=== PATIENT | female | born 1940 | race Caucasian/White ===

== ENCOUNTER 2022-06-22 18:15 | Emergency (ER) | payer MEDICARE, SELFPAY ==
--- NOTE | ~2022-06-22 | CT_ITS ---
EXAMINATION: NONCONTRAST HEAD CT NONCONTRAST CERVICAL SPINE CT INDICATION INFORMATION: Status post fall on blood thinners. Bilateral neck pain. COMPARISON: None TECHNIQUE: Separate noncontrast CT examinations of the head and cervical spine were performed. Coronal and sagittal images were created for each examination at the technologist workstation. This CT examination was performed using dose optimization techniques as appropriate, variously including the following: *Automated exposure control *Adjustment of mA and/or kV according to patient size (this includes techniques or standardized protocols for targeted exams where dose is matched to indication/reason for exam; i.e. extremities or head) *Use of iterative reconstruction technique DLP: 1128 mGy-cm FINDINGS: HEAD: No intra or extra-axial fluid collection, hemorrhage, or mass. No ventriculomegaly. No midline shift or herniation. Basal cisterns are patent. Camargo-white matter differentiation is maintained. No territorial encephalomalacia. Proportional prominence of the ventricles and sulcal spaces is consistent with mild volume loss. Patchy periventricular and deep white matter hypoattenuation is consistent with moderate small vessel ischemic changes. Prior lacunar infarcts in the right caudate head, left lentiform nucleus, and left thalamus. No calvarial fracture or soft tissue abnormality. The mastoid air cells and visualized portions of the paranasal sinuses are well aerated. Status post bilateral lens extractions. CERVICAL SPINE: Alignment: Straightening of the normal cervical lordosis. Minimal grade 1 anterolisthesis at C2-C3, C7-T1, T1-T2, T2-T3. Vertebra: No acute fracture. No prevertebral soft tissue swelling. Degenerative disc disease: Diffuse severe cervical spondylosis characterized by severe disc height loss, endplate sclerosis and proliferative change throughout the cervical spine. Multilevel facet arthrosis. Acquired right facet joint ankylosis at C3-C5. Additional disc degenerative changes of facet arthrosis in the imaged upper thoracic spine. Other findings: Large 5.4 cm left thyroid nodule with rightward displacement of the trachea. Smaller 1 cm right thyroid nodule. Lung apices are clear. No cervical lymphadenopathy. CT/CT cervical spine wo con IMPRESSION: 1. No intracranial hemorrhage or calvarial fracture. 2. No traumatic subluxation or acute cervical spine fracture. 3. Large 5.4 cm left thyroid nodule with rightward displacement of the trachea. Correlate with the history and consider further assessment with thyroid ultrasound as clinically indicated.
[2022-06-22 18:19] VITALS: BP 150/89; BP 158/90; PULSE 90; PULSE 94; RESP 18; TEMP 37.2; O2SAT 98; BMI 33.6
--- NOTE | 2022-06-22 18:45 | ED.GENADULT ---
HPI - General Adult General Chief complaint: Fall Stated complaint: FALL Time Seen by Provider: 06/22/22 18:25 Source: patient and EMS Mode of arrival: EMS Limitations: no limitations History of Present Illness HPI narrative: Patient comes to the emergency room complaining of a fall. Earlier today, patient states that she was discharged from [facility]. Today, patient was walking around with her walker, trying to get to a bathroom, since the patient had a mechanical fall and slipped. The fall was unwitnessed. Patient reports head strike, no loss of consciousness, patient is on Eliquis. Patient denies dizziness, chest pain or shortness of breath . Related Data Allergies Allergy/AdvReac Type Severity Reaction Status Date / Time Penicillins [PCN] Allergy Unknown Verified 06/22/22 18:29 Sulfa (Sulfonamide Allergy Unknown Verified 06/22/22 18:29 Antibiotics) triamterene Allergy Unknown Verified 06/22/22 18:29 Review of Systems Review of Systems: Constitutional : No Weight loss, No Fever, No Chills, No Night Sweats, No Fatigue, No Malaise ENT/Mouth : No Hearing loss, No Ear Pain, No Nasal Congestion, No Sinus Pain, No Hoarseness, No sore throat, No Rhinorrhea, No Swallowing Difficulty Eyes: No Eye Pain, No Swelling, No Redness, No Foreign Body, No Discharge, No Vision Changes Cardiovascular : No Chest Pain, No SOB, No Dyspnea on Exertion, No Orthopnea, No Edema, No Palpitations Respiratory : No Cough, No Sputum, No Wheezing, No Smoke Exposure, No Dyspnea Gastrointestinal : No Nausea, No Vomiting, No Diarrhea, No Constipation, No abdominal Pain, No Hematochezia, No Melena Genitourinary : no irregular bleeding, No Dysuria, No Urinary Frequency, No Hematuria, No Urinary Incontinence, No Urgency, No Flank Pain, No Urinary Flow Changes, No Hesitancy Musculoskeletal : No joint pain, No Myalgias, No Joint Swelling Skin : No Skin Lesions, No rash, complaining of mild pain in the back of her head Neuro : No Weakness, No Numbness, No Paresthesias, No Loss of Consciousness, No Dizziness, No Headache Psych : No Anxiety/Panic, No Depression, No SI/HI/AH/VH, No Social Issues, Heme/Lymph: No Bruising, No Bleeding,No Lymphadenopathy Endocrine : No Polyuria, No Polydipsia, No Temperature Intolerance REPLACED BY [facility] Past Medical History Medical History Afib Atherosclerotic heart disease COPD (chronic obstructive pulmonary disease) Diastolic CHF Difficulty walking Fall GERD (gastroesophageal reflux disease) HLD (hyperlipidemia) Mild cognitive impairment Muscle weakness Obesity Overactive bladder Sleep apnea TIA (transient ischemic attack) Social History Social History Advance Directives: No Advance Directives Information Provided: No Physical Exam ED Vital Signs: Vital Signs - 24 hr 06/22/22 18:19 Temperature 98.9 F Pulse Rate 90 Respiratory Rate 18 Blood Pressure 150/89 H Pulse Oximetry 98 Oxygen Delivery Method Room Air BMI result Body Mass Index 33.6 Const Other: Appearance: Alert. Oriented X3. No acute distress. Eyes: Pupils equal, round and reactive to light. ENT: Pharynx normal. Neck: Normal inspection. Neck supple. No lymph nodes noted. No crepitus CVS: Normal heart rate and rhythm. Pulses normal. Normal S1 and S2 Respiratory: No respiratory distress. Breath sounds normal. No Wheezing. No rales Abdomen: Soft and nontender. No rigidity. No distention. Skin: Skin warm and dry. Normal skin color. Normal skin turgor. Extremities: No lower extremity edema. No Lacerations. No Rash, patient has normal range of motion, flexion and extension in upper and lower extremities and hips bilaterally Neuro: Oriented X 3. No motor deficit. No sensory deficit. Moving all extremities. No slurred speech. CN 2 through 12 grossly intact Psych: calm, cooperative, normal affect Course Course Course Narrative: I discussed the CT scan with the patient, no acute findings. Patient does not have abrasion or or laceration in the scalp. Patient ready for discharge Medical Decision Making Imaging Data Head cervical spine CT: Radiologist's impression: HEAD: No intra or extra-axial fluid collection, hemorrhage, or mass. No ventriculomegaly. No midline shift or herniation. Basal cisterns are patent. Camargo-white matter differentiation is maintained. No territorial encephalomalacia. Proportional prominence of the ventricles and sulcal spaces is consistent with mild volume loss. Patchy periventricular and deep white matter hypoattenuation is consistent with moderate small vessel ischemic changes. Prior lacunar infarcts in the right caudate head, left lentiform nucleus, and left thalamus. No calvarial fracture or soft tissue abnormality. The mastoid air cells and visualized portions of the paranasal sinuses are well aerated. Status post bilateral lens extractions. CERVICAL SPINE: Alignment: Straightening of the normal cervical lordosis. Minimal grade 1 anterolisthesis at C2-C3, C7-T1, T1-T2, T2-T3. Vertebra: No acute fracture. No prevertebral soft tissue swelling. Degenerative disc disease: Diffuse severe cervical spondylosis characterized by severe disc height loss, endplate sclerosis and proliferative change throughout the cervical spine. Multilevel facet arthrosis. Acquired right facet joint ankylosis at C3-C5. Additional disc degenerative changes of facet arthrosis in the imaged upper thoracic spine. Other findings: Large 5.4 cm left thyroid nodule with rightward displacement of the trachea. Smaller 1 cm right thyroid nodule. Lung apices are clear. No cervical lymphadenopathy. CT/CT cervical spine wo con IMPRESSION: 1. No intracranial hemorrhage or calvarial fracture. 2. No traumatic subluxation or acute cervical spine fracture. 3. Large 5.4 cm left thyroid nodule with rightward displacement of the trachea. Correlate with the history and consider further assessment with thyroid ultrasound as clinically indicated. Discharge Plan Discharge Clinical Impression: Fall, Contusion Patient Disposition: Home, Self-Care Instructions: Fall Prevention (ED) Additional Instructions: Please follow-up with your primary care physician tomorrow. If you have any worsening or new symptoms, please return to the emergency room or call [phone]
[2022-06-22 21:23] VITALS: PULSE 69; RESP 18; O2SAT 96
--- NOTE | 2022-06-22 21:23 | PC.NURSE ---
call to lisandra [facility] to give rn to rn report.
--- NOTE | 2022-06-22 21:31 | PC.NURSE ---
call out to [facility] @[id number] patient will be transported to [facility] within the hour
--- NOTE | 2022-06-22 21:49 | PC.NURSE ---
Called x 3 [facility].
== END 2022-06-22 21:54 | disposition home or self-care (01) ==
PROVIDERS: Emergency Provider Emergency Medicine; PCP Internal Medicine
DX: S00.93XA Contusion of unspecified part of head, initial encounter (principal); R51.9 Headache, unspecified; M54.2 Cervicalgia; W01.0XXA Fall on same level from slipping, tripping and stumbling without subsequent striking against object, initial encounter; Y93.9 Activity, unspecified; Y92.9 Unspecified place or not applicable; Y99.9 Unspecified external cause status; Z79.899 Other long term (current) drug therapy
CPT/HCPCS: 70450; 72125; 99283; 99284